=== PATIENT | male | born 1985 | race African-American/Black ===

== ENCOUNTER 2018-08-10 05:22 | Emergency (ER) | payer BC ==
[2018-08-10] MEDS ORDERED: Pantoprazole 40 MG Vial IVPUSH ONE (05:32)
[2018-08-10] MEDS ORDERED: Sodium Chloride 0.9% 1,000 ML IV ONE (05:32)
[2018-08-10] MEDS ORDERED: Alum Hydrox/Mag Hydrox/Simeth 15 ML, Metoclopramide 5 MG, Lidocaine 2% 5 ML PO ONE ×3 (05:32)
--- NOTE | 2018-08-10 05:33 | EDM.PDOC ---
ED HPI GENERAL MEDICAL PROBLEM - General Chief Complaint: Chest Pain Stated Complaint: CHEST PAIN, INTERMITTENT SHORTNESS OF BREATH Time Seen by Provider: 08/10/18 05:32 Source of Information: Reports: Patient - History of Present Illness INITIAL COMMENTS - FREE TEXT/NARRATIVE: HISTORY AND PHYSICAL: History of present illness: [Patient presents with 3 out of 10 chest pain/pressure for 2 days and intermittent shortness of breath, patient states symptoms are currently present however he no pain behaviors no shortness of breath is apparent breathing is nonlabored speaks in full sentences clearly States that yesterday he vomited once but was not sure if this was associated with the discomfort or why he vomited, pain is not increased with labor or or activity, he notices pain developed after being in [place] where he had been eating a more spicy diet and then on return to [place] is also been eating some spicy noodles that he had picked up at the grocery store, along with various [id number] headache medications and drinking tea. Symptoms increase when he lies down at night No radiation arm neck or jaw not associated with diaphoresis No fever chills or sweats no palpitation bowel or urine symptoms ] Review of systems: As per history of present illness and below otherwise all systems reviewed and negative. Past medical history: As per history of present illness and as reviewed below otherwise noncontributory. Surgical history: As per history of present illness and as reviewed below otherwise noncontributory. Social history: No reported history of drug or alcohol abuse. Family history: As per history of present illness and as reviewed below otherwise noncontributory. Physical exam: HEENT: Atraumatic, normocephalic, pupils reactive, negative for conjunctival pallor or scleral icterus, mucous membranes moist, throat clear, neck supple, nontender, trachea midline. Lungs: Clear to auscultation, breath sounds equal bilaterally, chest nontender. Heart: S1S2, regular, negative for clicks, rubs, or JVD. Abdomen: Soft, nondistended, nontender. Negative for masses or hepatosplenomegaly. Negative for costovertebral tenderness. Pelvis: Stable nontender. Genitourinary: Deferred. Rectal: Deferred. Extremities: Atraumatic, negative for cords or calf pain. Neurovascular unremarkable. Neuro: Awake, alert, oriented. Cranial nerves II through XII unremarkable. Cerebellum unremarkable. Motor and sensory unremarkable throughout. Exam nonfocal. Diagnostics: [CBC CMP troponin EKG chest 1 view Lipase ] Therapeutics: [ normal saline Proton X GI cocktail Over the counter symptomatic therapies discussed Avoid triggersIn this patient it would seem to be spicy food NSAIDs and Tea ] Impression: [GERD] Definitive disposition and diagnosis as appropriate pending reevaluation and review of above. chest Pain Score (Numeric/FACES): 1 - Related Data Allergies Allergy/AdvReac Type Severity Reaction Status Date / Time pollen extracts Allergy Other Verified 08/10/18 05:33 Home Meds: Home Meds . [No Known Home Meds] 12/19/14 [History] Past Medical History - Past Health History Medical/Surgical History: Denies Medical/Surgical History ED ROS GENERAL - Review of Systems Review Of Systems: See Below ED EXAM, GENERAL - Physical Exam Exam: See Below Course - Vital Signs Last Recorded V/S: Last Vital Signs Temp 97.7 F 08/10/18 05:22 Pulse 81 08/10/18 05:22 Resp 18 08/10/18 05:22 BP 135/96 H 08/10/18 05:22 Pulse Ox 97 08/10/18 05:22 - Orders/Labs/Meds Orders: Active Orders 24 hr Category Date Time Status Chest 1V Frontal [CR] Stat Exams 08/10/18 05:32 Taken Famotidine [Pepcid] Med 08/10/18 06:18 Once 20 mg PO ONETIME ONE Sodium Chloride 0.9% [Normal Saline] 1,000 ml Med 08/10/18 05:32 Active IV STAT Medication Orders Sodium Chloride (Normal Saline) 1,000 mls @ 999 mls/hr IV STAT ONE Stop: 08/10/18 06:32 Last Admin: 08/10/18 05:41 Dose: 999 mls/hr Labs: Laboratory Tests 08/10/18 08/10/18 08/10/18 Range/Units 05:30 05:30 06:00 WBC 6.44 (4.0-11.0) K/uL RBC 4.66 (4.50-5.90) M/uL Hgb 14.4 (13.0-17.0) g/dL Hct 42.6 (38.0-50.0) % MCV 91.4 (80.0-98.0) fL MCH 30.9 (27.0-32.0) pg MCHC 33.8 (31.0-37.0) g/dL RDW Std Deviation 43.9 (28.0-62.0) fl RDW Coeff of Mar[place] 13 (11.0-15.0) % Plt Count 238 (150-400) K/uL MPV 9.20 (7.40-12.00) fL Neut % (Auto) 28.1 L (48.0-80.0) % Lymph % (Auto) 54.5 H (16.0-40.0) % [place] % (Auto) 16.0 H (0.0-15.0) % Eos % (Auto) 1.2 (0.0-7.0) % Baso % (Auto) 0.2 (0.0-1.5) % Neut # (Auto) 1.8 (1.4-5.7) K/uL Lymph # (Auto) 3.5 H (0.6-2.4) K/uL [place] # (Auto) 1.0 H (0.0-0.8) K/uL Eos # (Auto) 0.1 (0.0-0.7) K/uL Baso # (Auto) 0.0 (0.0-0.1) K/uL Nucleated RBC % 0.0 /100WBC Nucleated RBCs # 0 K/uL Sodium 141 (136-148) mmol/L Potassium 3.7 (3.5-5.1) mmol/L Chloride 103 (98-107) mmol/L Carbon Dioxide 27.5 (21.0-32.0) mmol/L BUN 20 H (7.0-18.0) mg/dL Creatinine 1.5 H (0.8-1.3) mg/dL Est Cr Clr Drug Dosing 87.60 mL/min Estimated GFR (MDRD) > 60.0 ml/min Glucose 112 H (74-106) mg/dL Calcium 8.9 (8.5-10.1) mg/dL Total Bilirubin 0.5 (0.2-1.0) mg/dL AST 19 (15-37) IU/L ALT 32 (14-63) IU/L Alkaline Phosphatase 49 (46-116) U/L Total Protein 7.7 (6.4-8.2) g/dL Albumin 4.0 (3.4-5.0) g/dL Globulin 3.7 (2.6-4.0) g/dL Albumin/Globulin Ratio 1.1 (0.9-1.6) Lipase 144 (73-393) U/L Urine Color DARK YELLOW Urine Appearance SLT CLOUDY Urine pH 5.5 (5.0-8.0) Ur Specific [place] >= 1.030 (1.001-1.035) Urine Protein NEGATIVE (NEGATIVE) mg/dL Urine Glucose (UA) NEGATIVE (NEGATIVE) mg/dL Urine Ketones NEGATIVE (NEGATIVE) mg/dL Urine Occult Blood NEGATIVE (NEGATIVE) Urine Nitrite NEGATIVE (NEGATIVE) Urine Bilirubin NEGATIVE (NEGATIVE) Urine Urobilinogen 1.0 (<2.0) EU/dL Ur Leukocyte Esterase NEGATIVE (NEGATIVE) Meds: Medications Generic Name Dose Route Start Last Admin Trade Name Freq PRN Reason Stop Dose Admin Sodium Chloride 1,000 mls @ 999 mls/hr 08/10/18 05:32 08/10/18 05:41 Normal Saline IV 08/10/18 06:32 999 mls/hr STAT ONE Administration Discontinued Medications Generic Name Dose Route Start Last Admin Trade Name Freq PRN Reason Stop Dose Admin Al Hydroxide/Mg Hydroxide 15 0 ml 08/10/18 05:32 08/10/18 05:42 ml/ Metoclopramide HCl 5 mg/ PO 08/10/18 05:33 25 each Lidocaine HCl 5 ml ONETIME ONE Administration Sodium Chloride Confirm 08/10/18 05:37 08/10/18 05:48 Normal Saline Administered 08/10/18 05:38 20 mls/hr Dose Administration 20 mls @ as directed .ROUTE .STK-MED ONE Pantoprazole Sodium 80 mg 08/10/18 05:32 08/10/18 05:42 Protonix Iv IVPUSH 08/10/18 05:33 80 mg .BOLUS ONE Administration Departure - Departure Time of Disposition: 06:20 Disposition: Home, Self-Care 01 Condition: Good Clinical Impression: GERD (gastroesophageal reflux disease) - Discharge Information Forms: ED Department Discharge Additional Instructions: Zantac 150 milligrams by mouth twice a day as needed Prilosec 40 mg daily may benefit Avoid triggers of acid reflux is discussed in your case would seem that NSAIDs/ headache medication, tea and spicy food be the main triggers with your otherwise healthy lifestyle return if symptoms persist or worsen or if new concerning symptoms develop Follow-up with primary care in 2 weeks sooner as needed Raianna Manley [facility] [address] [place] [id number] The following information is given to patients seen in the emergency department who are being discharged to home. This information is to outline your options for follow-up care. We provide all patients seen in our emergency department with a follow-up referral. The need for follow-up, as well as the timing and circumstances, are variable depending upon the specifics of your emergency department visit. If you don't have a primary care physician on staff, we will provide you with a referral. We always advise you to contact your personal physician following an emergency department visit to inform them of the circumstance of the visit and for follow-up with them and/or the need for any referrals to a consulting specialist. The emergency department will also refer you to a specialist when appropriate. This referral assures that you have the opportunity for follow-up care with a specialist. All of these measure are taken in an effort to provide you with optimal care, which includes your follow-up. Under all circumstances we always encourage you to contact your private physician who remains a resource for coordinating your care. When calling for follow-up care, please make the office aware that this follow-up is from your recent emergency room visit. If for any reason you are refused follow-up, please contact the [facility] emergency department at and asked to speak to the emergency department charge nurse. - My Orders Last 24 Hours: My Active Orders 08/10/18 05:32 Chest 1V Frontal [CR] Stat Sodium Chloride 0.9% [Normal Saline] 1,000 ml IV STAT 08/10/18 06:18 Famotidine [Pepcid] 20 mg PO ONETIME ONE - Assessment/Plan Last 24 Hours: My Active Orders 08/10/18 05:32 Chest 1V Frontal [CR] Stat Sodium Chloride 0.9% [Normal Saline] 1,000 ml IV STAT 08/10/18 06:18 Famotidine [Pepcid] 20 mg PO ONETIME ONE
[2018-08-10] MEDS ORDERED: Sodium Chloride 0.9% 20 ML ONE (05:37)
[2018-08-10 05:59] LABS: CHLORIDE,CL 103 mmol/L (98-107); SODIUM,NA 141 mmol/L (136-148)
[2018-08-10] MEDS ORDERED: Famotidine 20 MG Tab PO ONE (06:18)
[2018-08-10 06:34] VITALS: BP 118/86
--- NOTE | 2018-08-10 07:31 | CR ---
INDICATION: Chest pain. FINDINGS: Portable AP view of the chest was obtained. The cardiac silhouette and pulmonary vasculature are within normal limits. The lungs are clear bilaterally. IMPRESSION: No evidence of acute pulmonary disease. Dictated by Manish Vail MD @ 08/10/2018 7:29:07 AM Dictated by: Manish Vail MD @ 08/10/2018 07:29:13 (Electronically Signed)
== END 2018-08-10 06:30 | disposition home or self-care (01) ==
LOC: MW.ED 05:22
DX: K21.9 Gastro-esophageal reflux disease without esophagitis (principal)
CPT/HCPCS: 36415; 71045; 80053; 81003; 83690; 85025; 93005; 96361; 96374; 99285; A9270; C9113; J7040; 99283